=== PATIENT | female | born 1990 | race Caucasian/White ===

== ENCOUNTER 2016-08-05 17:59 | Emergency (ER) | payer OTHER | END 2016-08-05 23:00 | disposition home or self-care (01) | LOC: ER1 17:59 | DX: O20.0 Threatened abortion (principal); O99.89 Other specified diseases and conditions complicating pregnancy, childbirth and the puerperium; M54.5 Low back pain; Z88.2 Allergy status to sulfonamides; Z88.1 Allergy status to other antibiotic agents; Z88.5 Allergy status to narcotic agent; Z79.82 Long term (current) use of aspirin; Z79.899 Other long term (current) drug therapy; Z3A.01 Less than 8 weeks gestation of pregnancy | CPT/HCPCS: 36415; 76830; 81001; 84702; 84703; 87086; 87210; 99284 ==

== ENCOUNTER 2016-08-08 21:03 | Emergency (ER) | payer OTHER | END 2016-08-08 22:56 | disposition home or self-care (01) | LOC: ER1 21:03 | DX: Z32.01 Encounter for pregnancy test, result positive (principal) | CPT/HCPCS: 84702; 99282 ==

== ENCOUNTER 2016-08-10 17:24 | Emergency (ER) | payer OTHER | END 2016-08-10 21:10 | disposition home or self-care (01) | LOC: ER1 17:24 | DX: Z32.01 Encounter for pregnancy test, result positive (principal); Z88.0 Allergy status to penicillin; Z88.5 Allergy status to narcotic agent; Z79.82 Long term (current) use of aspirin | CPT/HCPCS: 84702; 99282 ==

== ENCOUNTER → 2016-08-15 | Outpatient (CLI) | payer OTHER | LOC: LAB 21:07 | DX: O20.0 Threatened abortion (principal); Z3A.00 Weeks of gestation of pregnancy not specified | CPT/HCPCS: 36415; 84702 ==

== ENCOUNTER → 2016-08-21 | Outpatient (CLI) | payer OTHER | LOC: LAB 20:13 | DX: O20.0 Threatened abortion (principal) | CPT/HCPCS: 84702 ==